=== PATIENT | male | born 2000 | race Caucasian/White ===

== ENCOUNTER 2019-05-13 11:12 | Day surgery (SDC) | payer OTHER ==
[2019-05-13] MEDS ORDERED: Diphtheria,Pertussis(Acell),Tetanus Vaccine 0.5 ML Syringe IM ONE (11:31)
[2019-05-13] MEDS ORDERED: Sodium Chloride 0.9% 2.5 ML Syringe FLUSH PRN (12:12)
[2019-05-13] MEDS ORDERED: Sodium Chloride 0.9% 10 ML Syringe FLUSH PRN (12:12)
[2019-05-13 12:27] LABS: BLOOD UREA NITROGEN,BUN 10 mg/dL (7.0-18.0); CARBON DIOXIDE,CO2 28.9 mmol/L (21.0-32.0); CHLORIDE,CL 101 mmol/L (98-107); GLUCOSE RANDOM 112 mg/dL (74-106); LIPASE 61 U/L (73-393); POTASSIUM,K 3.9 mmol/L (3.5-5.1); SODIUM,NA 139 mmol/L (136-148)
--- NOTE | 2019-05-13 12:32 | EDM.PDOC ---
ED [facility] GENERAL MEDICAL PROBLEM - General Chief Complaint: Abdominal Pain Stated Complaint: ABDOMINAL PAIN Time Seen by Provider: 05/13/19 12:30 Source of Information: Reports: Patient History Limitations: Reports: No Limitations - History of Present Illness INITIAL COMMENTS - FREE TEXT/NARRATIVE: Patient is 18-year-old male with no past medical history presenting with chief complaint of abdominal pain. Patient states for the past 2 days he has been feeling generally unwell experiencing URI symptoms along with nausea and loss of appetite. Today he developed pain in his abdomen. The pain is located in the right lower quadrant and does not radiate. Patient fluctuates in intensity. Patient states that nothing seems to make the pain better or worse. However as the day has gone on the pain is progressed and become more intense. Patient reports nausea without vomiting. Patient denies fevers, chills, diarrhea, constipation. In addition to that documented in the HPI above, the additional ROS was obtained : Constitutional: Denies fevers or chills Eyes: Denies vision changes ENMT: Denies sore throat CV: Denies chest pain Resp: Denies SOB GI: Denies vomiting or diarrhea : Denies painful urination MSK: Denies recent trauma Skin: Denies new rashes Neuro: Denies new numbness or tingling or weakness Endocrine: Denies unexpected weight loss Heme: Denies bleeding disorders I have reviewed the triage vital signs Const: Well nourished, well developed, appears stated age Eyes: PERRL, no conjunctival injection HENT: NCAT, Neck supple without meningismus CV: RRR, Warm, well-perfused extremities RESP: CTAB, Unlabored respiratory effort GI: Right lower quadrant abdominal tenderness. McBurney point tenderness. Positive Rovsing sign. No distention. No peritonitis MSK: No gross deformities appreciated Skin: Warm, dry. 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 Sensation and motor function of extremities grossly intact. Psych: Appropriate mood and affect Right Lower Abdominal Pain Score (Numeric/FACES): 8 - Related Data Allergies Allergy/AdvReac Type Severity Reaction Status Date / Time No Known Allergies Allergy Verified 05/13/19 20:40 Home Meds: Home Meds Acetaminophen/HYDROcodone [Morris 325-5 MG] 1 tab PO Q6H PRN 3 Days #10 tablet [Rx] Past Medical History - Past Health History Medical/Surgical History: Denies Medical/Surgical History - Infectious Disease History Infectious Disease History: Reports: None Social & Family History - Family History Family Medical History: Noncontributory - Tobacco Use Years of Tobacco use: 3 Packs/Tins Daily: 0.5 - Caffeine Use Caffeine Use: Reports: Coffee - Recreational Drug Use Recreational Drug Use: No ED ROS GENERAL - Review of Systems Review Of Systems: See Below Free Text/Narrative/Comment: In addition to that documented in the HPI above, the additional ROS was obtained : Constitutional: Denies fevers or chills Eyes: Denies vision changes ENMT: Denies sore throat CV: Denies chest pain Resp: Denies SOB GI: Denies vomiting or diarrhea : Denies painful urination MSK: Denies recent trauma Skin: Denies new rashes Neuro: Denies new numbness or tingling or weakness Endocrine: Denies unexpected weight loss Heme: Denies bleeding disorders ED EXAM, GI/ABD - Physical Exam Exam: See Below Text/Narrative:: I have reviewed the triage vital signs Const: Well nourished, well developed, appears stated age Eyes: PERRL, no conjunctival injection HENT: NCAT, Neck supple without meningismus CV: RRR, Warm, well-perfused extremities RESP: CTAB, Unlabored respiratory effort GI: Tender palpation of the right lower quadrant. McBurney point tenderness. Positive Rovsing sign. No guarding MSK: No gross deformities appreciated Skin: Warm, dry. 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 Sensation and motor function of extremities grossly intact. Psych: Appropriate mood and affect Course - Vital Signs Last Recorded V/S: Last Vital Signs Temp 36.6 C 05/14/19 07:46 Pulse 60 05/14/19 07:46 Resp 17 05/14/19 07:46 BP 109/67 05/14/19 07:46 Pulse Ox 97 05/14/19 07:46 - Orders/Labs/Meds Orders: Active Orders 24 hr Category Date Time Status Oxygen Therapy [RC] PRN Care 05/13/19 19:50 Active Pulse Oximetry [RC] ASDIRECTED Care 05/13/19 19:50 Active RT Incentive Spirometry [RC] Q1HWA Care 05/13/19 19:50 Active Ready for Discharge [RC] PER UNIT ROUTINE Care 05/14/19 10:11 Active Up ad Alisa [RC] PER UNIT ROUTINE Care 05/13/19 19:50 Active Vital Signs [RC] PER UNIT ROUTINE Care 05/13/19 19:50 Active Labs: Laboratory Tests 05/13/19 05/13/19 05/13/19 Range/Units 11:25 11:30 11:30 WBC 9.64 (4.0-11.0) K/uL RBC 5.08 (4.50-5.90) M/uL Hgb 14.5 (13.0-17.0) g/dL Hct 43.4 (38.0-50.0) % MCV 85.4 (80.0-98.0) fL MCH 28.5 (27.0-32.0) pg MCHC 33.4 (31.0-37.0) g/dL RDW Std Deviation 38.3 (28.0-62.0) fl RDW Coeff of Renee 12 (11.0-15.0) % Plt Count 187 (150-400) K/uL MPV 10.90 (7.40-12.00) fL Neut % (Auto) 73.8 (48.0-80.0) % Lymph % (Auto) 17.8 (16.0-40.0) % [place] % (Auto) 7.6 (0.0-15.0) % Eos % (Auto) 0.5 (0.0-7.0) % Baso % (Auto) 0.3 (0.0-1.5) % Neut # (Auto) 7.1 H (1.4-5.7) K/uL Lymph # (Auto) 1.7 (0.6-2.4) K/uL [place] # (Auto) 0.7 (0.0-0.8) K/uL Eos # (Auto) 0.1 (0.0-0.7) K/uL Baso # (Auto) 0.0 (0.0-0.1) K/uL Nucleated RBC % 0.0 /100WBC Nucleated RBCs # 0 K/uL Sodium 139 (136-148) mmol/L Potassium 3.9 (3.5-5.1) mmol/L Chloride 101 (98-107) mmol/L Carbon Dioxide 28.9 (21.0-32.0) mmol/L BUN 10 (7.0-18.0) mg/dL Creatinine 0.9 (0.8-1.3) mg/dL Est Cr Clr Drug Dosing 134.40 mL/min Estimated GFR (MDRD) > 60.0 ml/min Glucose 112 H (74-106) mg/dL Calcium 9.1 (8.5-10.1) mg/dL Total Bilirubin 0.6 (0.2-1.0) mg/dL AST 18 (15-37) IU/L ALT 19 (14-63) IU/L Alkaline Phosphatase 68 (46-116) U/L Total Protein 8.3 H (6.4-8.2) g/dL Albumin 4.2 (3.4-5.0) g/dL Globulin 4.1 H (2.6-4.0) g/dL Albumin/Globulin Ratio 1.0 (0.9-1.6) Amylase 44 (25-115) U/L Lipase 61 L (73-393) U/L Urine Color YELLOW Urine Appearance CLEAR Urine pH 6.0 (5.0-8.0) Ur Specific [place] 1.025 (1.001-1.035) Urine Protein NEGATIVE (NEGATIVE) mg/dL Urine Glucose (UA) NEGATIVE (NEGATIVE) mg/dL Urine Ketones TRACE H (NEGATIVE) mg/dL Urine Occult Blood NEGATIVE (NEGATIVE) Urine Nitrite NEGATIVE (NEGATIVE) Urine Bilirubin NEGATIVE (NEGATIVE) Urine Urobilinogen 0.2 (<2.0) EU/dL Ur Leukocyte Esterase NEGATIVE (NEGATIVE) Urine RBC 0-1 (0-2/HPF) Urine WBC 0-1 (0-5/HPF) Ur Epithelial Cells RARE (NONE-FEW) Urine Bacteria RARE (NEGATIVE) Urine Mucus LIGHT (NONE-MOD) Blood Type Antibody Screen 05/13/19 Range/Units 14:18 WBC (4.0-11.0) K/uL RBC (4.50-5.90) M/uL Hgb (13.0-17.0) g/dL Hct (38.0-50.0) % MCV (80.0-98.0) fL MCH (27.0-32.0) pg MCHC (31.0-37.0) g/dL RDW Std Deviation (28.0-62.0) fl RDW Coeff of Renee (11.0-15.0) % Plt Count (150-400) K/uL MPV (7.40-12.00) fL Neut % (Auto) (48.0-80.0) % Lymph % (Auto) (16.0-40.0) % [place] % (Auto) (0.0-15.0) % Eos % (Auto) (0.0-7.0) % Baso % (Auto) (0.0-1.5) % Neut # (Auto) (1.4-5.7) K/uL Lymph # (Auto) (0.6-2.4) K/uL [place] # (Auto) (0.0-0.8) K/uL Eos # (Auto) (0.0-0.7) K/uL Baso # (Auto) (0.0-0.1) K/uL Nucleated RBC % /100WBC Nucleated RBCs # K/uL Sodium (136-148) mmol/L Potassium (3.5-5.1) mmol/L Chloride (98-107) mmol/L Carbon Dioxide (21.0-32.0) mmol/L BUN (7.0-18.0) mg/dL Creatinine (0.8-1.3) mg/dL Est Cr Clr Drug Dosing mL/min Estimated GFR (MDRD) ml/min Glucose (74-106) mg/dL Calcium (8.5-10.1) mg/dL Total Bilirubin (0.2-1.0) mg/dL AST (15-37) IU/L ALT (14-63) IU/L Alkaline Phosphatase (46-116) U/L Total Protein (6.4-8.2) g/dL Albumin (3.4-5.0) g/dL Globulin (2.6-4.0) g/dL Albumin/Globulin Ratio (0.9-1.6) Amylase (25-115) U/L Lipase (73-393) U/L Urine Color Urine Appearance Urine pH (5.0-8.0) Ur Specific [place] (1.001-1.035) Urine Protein (NEGATIVE) mg/dL Urine Glucose (UA) (NEGATIVE) mg/dL Urine Ketones (NEGATIVE) mg/dL Urine Occult Blood (NEGATIVE) Urine Nitrite (NEGATIVE) Urine Bilirubin (NEGATIVE) Urine Urobilinogen (<2.0) EU/dL Ur Leukocyte Esterase (NEGATIVE) Urine RBC (0-2/HPF) Urine WBC (0-5/HPF) Ur Epithelial Cells (NONE-FEW) Urine Bacteria (NEGATIVE) Urine Mucus (NONE-MOD) Blood Type O POSITIVE Antibody Screen NEGATIVE Meds: Medications Discontinued Medications Generic Name Dose Route Start Last Admin Trade Name Freq PRN Reason Stop Dose Admin Acetaminophen 1,000 mg 05/13/19 14:30 05/13/19 14:36 Tylenol Extra Strength PO 05/13/19 14:31 1,000 mg ONETIME ONE Administration Acetaminophen 325 mg 05/13/19 19:50 Tylenol PO Q4H PRN Fever Greater Than 101 Hydrocodone Bitart/Acetaminophen 1 tab 05/13/19 19:50 05/14/19 07:43 Morris 325-5 Mg PO 1 tab Q6H PRN Administration Pain (moderate 4-6) Albuterol 2.5 mg 05/13/19 17:34 Proventil Neb Soln NEB ONETIME PRN Wheezing Atropine Sulfate 0.5 mg 05/13/19 17:34 Atropine 0.1 Mg/Ml IVPUSH ASDIRECTED PRN Hypo-perfusion Atropine Sulfate 1 mg 05/13/19 17:34 Atropine 0.1 Mg/Ml IVPUSH ASDIRECTED PRN Hypo-Perfusion Bupivacaine HCl Confirm 05/13/19 18:07 Marcaine 0.5% Administered 05/13/19 18:08 Dose 30 ml .ROUTE .STK-MED ONE Cefazolin Sodium Confirm 05/13/19 18:07 Ancef Administered 05/13/19 18:08 Dose 1 gm .ROUTE .STK-MED ONE Cefoxitin Sodium Confirm 05/13/19 18:40 Mefoxin Administered 05/13/19 18:41 Dose 1 gm .ROUTE .STK-MED ONE Dextrose/Water 50 ml 05/13/19 17:34 Dextrose 50% In Water IVPUSH ASDIRECTED PRN Hypoglycemia Epinephrine HCl 1 mg 05/13/19 17:34 Epinephrine 1:10,000 IVPUSH ASDIRECTED PRN ACLS Guidelines Fentanyl 50 - 100 mcg 05/13/19 17:34 05/13/19 20:05 Sublimaze IVPUSH 50 mcg Q5M PRN Administration Pain Fentanyl Confirm 05/13/19 18:04 Sublimaze Administered 05/13/19 18:05 Dose 250 mcg .ROUTE .STK-MED ONE Cefoxitin Sodium 2 gm/ Premix 50 mls @ 100 mls/hr 05/13/19 13:27 05/13/19 14: 17 IV 05/13/19 13:56 100 mls/hr ONETIME ONE Administration Lactated Ringer's 1,000 mls @ 150 mls/hr 05/13/19 14:30 05/13/19 14:36 Ringers, Lactated IV 150 mls/hr ASDIRECTED BEE Administration Lactated Ringer's 1,000 mls @ 125 mls/hr 05/13/19 16:30 05/14/19 08:36 Ringers, Lactated IV 125 mls/hr ASDIRECTED BEE Administration Sodium Chloride Confirm 05/13/19 18:40 Normal Saline Administered 05/13/19 18:41 Dose 20 mls @ as directed .ROUTE .STK-MED ONE Lactated Ringer's 1,000 mls @ 125 mls/hr 05/13/19 20:00 Ringers, Lactated IV ASDIRECTED BEE Cefoxitin Sodium 1 gm/ Premix 50 mls @ 100 mls/hr 05/13/19 21:00 05/14/19 05: 10 IV 05/14/19 13:29 Not Given Q8H BEE Cefoxitin Sodium 1 gm/ Premix 50 mls @ 100 mls/hr 05/14/19 02:00 05/14/19 09: 11 IV 05/14/19 18:29 100 mls/hr Q8H BEE Administration Iopamidol 100 ml 05/13/19 12:58 05/13/19 13:00 Isovue Multipack-370 (76%) IVPUSH 05/13/19 12:59 100 ml ONETIME STA Administration Ketorolac Tromethamine Confirm 05/13/19 19:25 Toradol Administered 05/13/19 19:26 Dose 30 mg .ROUTE .STK-MED ONE Lidocaine Confirm 05/13/19 18:03 Xylocaine-Mpf 2% Administered 05/13/19 18:04 Dose 5 ml .ROUTE .STK-MED ONE Midazolam HCl Confirm 05/13/19 18:04 Versed 1 Mg/Ml Administered 05/13/19 18:05 Dose 2 mg .ROUTE .STK-MED ONE Morphine Sulfate 6 mg 05/13/19 13:27 05/13/19 14:17 Morphine IVPUSH 05/13/19 13:28 6 mg ONETIME ONE Administration Morphine Sulfate 0 mg 05/13/19 19:50 Morphine IVPUSH Q1H PRN Pain (severe 7-10) Morphine Sulfate 0 mg 05/13/19 20:03 05/14/19 09:05 Morphine IVPUSH 2 mg Q1H PRN Administration Pain (severe 7-10) Naloxone HCl 0.1 mg 05/13/19 17:34 Narcan IVPUSH ASDIRECTED PRN Respiratory Depression Ondansetron HCl 4 mg 05/13/19 13:27 05/13/19 14:18 Zofran IVPUSH 05/13/19 13:28 4 mg ONETIME ONE Administration Ondansetron HCl Confirm 05/13/19 18:03 Zofran Administered 05/13/19 18:04 Dose 4 mg .ROUTE .STK-MED ONE Ondansetron HCl 4 mg 05/13/19 19:50 Zofran IVPUSH Q6H PRN Nausea/Vomiting Propofol Confirm 05/13/19 18:03 Diprivan 20 Ml Administered 05/13/19 18:04 Dose 200 mg .ROUTE .STK-MED ONE Sodium Chloride 10 ml 05/13/19 12:12 Saline Flush FLUSH ASDIRECTED PRN Keep Vein Open Sodium Chloride 2.5 ml 05/13/19 12:12 Saline Flush FLUSH ASDIRECTED PRN Keep Vein Open Departure - Departure Time of Disposition: 07:50 Disposition: Admitted As Inpatient 64 Clinical Impression: Acute appendicitis Qualifiers: Acute appendicitis type: with localized peritonitis Appendicitis perforation presence: without perforation Appendicitis abscess presence: without abscess - Discharge Information Sepsis Event Note - Evaluation Sepsis Screening Result: No Definite Risk - Focused Exam Date Exam was Performed: 05/14/19 Time Exam was Performed: 20:49 - Assessment/Plan Assessment:: Patient 18 year-old male presenting with right lower quadrant pain. Labs noted unremarkable. Patient had a CT scan which is consistent with concerns for appendicitis. Patient given antibiotics and pain medication in the emergency department. Case discussed with Dr. Stephens who will evaluate the patient for appendectomy. Patient will likely require admission for appendectomy as well as postsurgical observation and antibiotics.
[2019-05-13] MEDS ORDERED: Iopamidol 755 MG/ML 500 ML Multipack Bottle IVPUSH STA (12:58)
--- NOTE | 2019-05-13 13:24 | CT ---
CT abdomen and pelvis Technique: Multiple axial sections were obtained from above the dome of the diaphragm inferiorly through the pubic symphysis. Intravenous contrast was utilized. No oral contrast has been given. Findings: Fluid-filled tubular structure is seen within the right lower abdomen believed to represent dilated appendix. There is an appendicolith also present within this appendix. Minimal surrounding inflammatory change is seen. Findings are felt compatible with appendicitis. Visualized lung bases show nothing acute. Liver contains no focal abnormality. Spleen also appears within normal limits. Adrenal glands show no nodule. Pancreas is within normal limits. Gallbladder contains no calcified gallstones. Kidneys show symmetric contrast enhancement. No hydronephrosis or discrete cortical mass is seen. Aorta shows no aneurysm. No retroperitoneal adenopathy or mesenteric abnormalities are seen. Small amount of free fluid is seen within the pelvis most likely reactive from the appendicitis. Bone window settings were reviewed which shows nothing acute. Impression: 1. Findings which are felt compatible with appendicitis as described above. Diagnostic code #5 This report was dictated in [place] Standard Time
[2019-05-13] MEDS ORDERED: cefOXitin 2 GM in Premix Bag 1 BAG IV ONE (13:27)
[2019-05-13] MEDS ORDERED: Morphine 10 MG/ML Syringe IVPUSH ONE (13:27)
[2019-05-13] MEDS ORDERED: Ondansetron 4 MG/2 ML SDV IVPUSH ONE (13:27)
[2019-05-13] MEDS ORDERED: Lactated Ringers 1,000 ML IV SCH ×2 (14:30→20:00)
[2019-05-13] MEDS ORDERED: Acetaminophen 500 MG Tab PO ONE (14:30)
--- NOTE | 2019-05-13 16:33 | PCM.CONS ---
H&P History of Present Illness - General Date of Service: 05/13/19 Admit Problem/Dx: Admission Diagnosis/Problem Admission Diagnosis/Problem Acute appendicitis Source of Information: Patient, Family History Limitations: Reports: No Limitations - History of Present Illness Initial Comments - Free Text/Narative: Patient is a 18-year-old gentleman who presented the emergency room today complaining of right lower quadrant abdominal pain. He states the pain started about 3 AM and became progressively more intense. He denies any vomiting. Has had occasional nausea. Has not felt well for a couple of days and really hasn' t eaten very much. Denies any fever or chills. No change in bowel habits. Onset of Symptoms: Reports: Today Duration of Symptoms: Reports: Getting Worse Location: Reports: Abdomen Quality: Reports: Ache, Pressure Severity: Moderate Improves with: Reports: Rest Worsens with: Reports: Movement Associated Symptoms: Reports: No Other Symptoms Right Lower Abdominal Pain Score (Numeric/FACES): 8 - Related Data Allergies/Adverse Reactions: Allergies Allergy/AdvReac Type Severity Reaction Status Date / Time No Known Allergies Allergy Verified 05/13/19 11:25 Home Medications: Home Meds . [No Known Home Meds] 03/23/15 [History] Past Medical History - Past Health History Medical/Surgical History: Denies Medical/Surgical History - Infectious Disease History Infectious Disease History: Reports: None Social & Family History - Family History Family Medical History: Noncontributory - Tobacco Use Years of Tobacco use: 3 Packs/Tins Daily: 0.5 - Caffeine Use Caffeine Use: Reports: Coffee - Recreational Drug Use Recreational Drug Use: No H&P Review of Systems - Review of Systems: Review Of Systems: See Below General: Reports: Decreased Appetite. Denies: Fever, Chills, Malaise, Weakness HEENT: Reports: No Symptoms Pulmonary: Denies: Shortness of Breath, Wheezing Cardiovascular: Denies: Chest Pain, Palpitations Gastrointestinal: Reports: Abdominal Pain, Anorexia, Black Stool, Difficulty Swallowing, Flatus, Nausea. Denies: Constipation, Diarrhea, Decreased Appetite , Distension, Vomiting Genitourinary: Reports: No Symptoms Musculoskeletal: Reports: No Symptoms Skin: Reports: No Symptoms Psychiatric: Reports: No Symptoms Neurological: Reports: No Symptoms Hematologic/Lymphatic: Reports: No Symptoms Exam - Exam Exam: See Below - Vital Signs Vital Signs: Last Vital Signs Temp 99.4 F 05/13/19 16:24 Pulse 81 05/13/19 16:24 Resp 16 05/13/19 14:27 BP 122/68 05/13/19 16:24 Pulse Ox 95 05/13/19 16:24 Weight: 160 lb - Exam General: Alert, Oriented, Cooperative, Mild Distress HEENT: PERRLA, Hearing Intact, Mucosa Moist & Progress, Nares Patent, Normal Nasal Septum, Posterior Pharynx Clear, Conjunctiva Clear, EOMI, EACs Clear, TMs Clear Neck: Supple, Trachea Midline Lungs: Clear to Auscultation, Normal Respiratory Effort Cardiovascular: Regular Rate, Regular Rhythm, Normal S1, Normal S2 GI/Abdominal Exam: Normal Bowel Sounds, Soft, Tender, Other (+Rovsing's sign). No: Distended, Guarding, Rigid, Rebound (Male) Exam: No Hernia Rectal (Males) Exam: Deferred Extremities: Normal Inspection, Normal Range of Motion, Non-Tender, No Pedal Edema, Normal Capillary Refill Peripheral Pulses: 4+: Posterior Tibial (L), Posterior Tibial (R), Dorsalis Pedis (L), Dorsalis Pedis (R) Skin: Warm, Dry, Intact Neurological: Cranial Nerves Intact Neuro Extensive - Mental Status: Alert, Oriented x3, Normal Mood/Affect Psychiatric: Alert, Normal Affect, Normal Mood - Patient Data Lab Results Last 24 hrs: Laboratory Results - last 24 hr 05/13/19 05/13/19 05/13/19 Range/Units 11:25 11:30 11:30 WBC 9.64 (4.0-11.0) K/uL RBC 5.08 (4.50-5.90) M/uL Hgb 14.5 (13.0-17.0) g/dL Hct 43.4 (38.0-50.0) % MCV 85.4 (80.0-98.0) fL MCH 28.5 (27.0-32.0) pg MCHC 33.4 (31.0-37.0) g/dL RDW Std Deviation 38.3 (28.0-62.0) fl RDW Coeff of Renee 12 (11.0-15.0) % Plt Count 187 (150-400) K/uL MPV 10.90 (7.40-12.00) fL Neut % (Auto) 73.8 (48.0-80.0) % Lymph % (Auto) 17.8 (16.0-40.0) % [place] % (Auto) 7.6 (0.0-15.0) % Eos % (Auto) 0.5 (0.0-7.0) % Baso % (Auto) 0.3 (0.0-1.5) % Neut # (Auto) 7.1 H (1.4-5.7) K/uL Lymph # (Auto) 1.7 (0.6-2.4) K/uL [place] # (Auto) 0.7 (0.0-0.8) K/uL Eos # (Auto) 0.1 (0.0-0.7) K/uL Baso # (Auto) 0.0 (0.0-0.1) K/uL Nucleated RBC % 0.0 /100WBC Nucleated RBCs # 0 K/uL Sodium 139 (136-148) mmol/L Potassium 3.9 (3.5-5.1) mmol/L Chloride 101 (98-107) mmol/L Carbon Dioxide 28.9 (21.0-32.0) mmol/L BUN 10 (7.0-18.0) mg/dL Creatinine 0.9 (0.8-1.3) mg/dL Est Cr Clr Drug Dosing 134.40 mL/min Estimated GFR (MDRD) > 60.0 ml/min Glucose 112 H (74-106) mg/dL Calcium 9.1 (8.5-10.1) mg/dL Total Bilirubin 0.6 (0.2-1.0) mg/dL AST 18 (15-37) IU/L ALT 19 (14-63) IU/L Alkaline Phosphatase 68 (46-116) U/L Total Protein 8.3 H (6.4-8.2) g/dL Albumin 4.2 (3.4-5.0) g/dL Globulin 4.1 H (2.6-4.0) g/dL Albumin/Globulin Ratio 1.0 (0.9-1.6) Amylase 44 (25-115) U/L Lipase 61 L (73-393) U/L Urine Color YELLOW Urine Appearance CLEAR Urine pH 6.0 (5.0-8.0) Ur Specific [place] 1.025 (1.001-1.035) Urine Protein NEGATIVE (NEGATIVE) mg/dL Urine Glucose (UA) NEGATIVE (NEGATIVE) mg/dL Urine Ketones TRACE H (NEGATIVE) mg/dL Urine Occult Blood NEGATIVE (NEGATIVE) Urine Nitrite NEGATIVE (NEGATIVE) Urine Bilirubin NEGATIVE (NEGATIVE) Urine Urobilinogen 0.2 (<2.0) EU/dL Ur Leukocyte Esterase NEGATIVE (NEGATIVE) Urine RBC 0-1 (0-2/HPF) Urine WBC 0-1 (0-5/HPF) Ur Epithelial Cells RARE (NONE-FEW) Urine Bacteria RARE (NEGATIVE) Urine Mucus LIGHT (NONE-MOD) Blood Type Antibody Screen 05/13/19 Range/Units 14:18 WBC (4.0-11.0) K/uL RBC (4.50-5.90) M/uL Hgb (13.0-17.0) g/dL Hct (38.0-50.0) % MCV (80.0-98.0) fL MCH (27.0-32.0) pg MCHC (31.0-37.0) g/dL RDW Std Deviation (28.0-62.0) fl RDW Coeff of Renee (11.0-15.0) % Plt Count (150-400) K/uL MPV (7.40-12.00) fL Neut % (Auto) (48.0-80.0) % Lymph % (Auto) (16.0-40.0) % [place] % (Auto) (0.0-15.0) % Eos % (Auto) (0.0-7.0) % Baso % (Auto) (0.0-1.5) % Neut # (Auto) (1.4-5.7) K/uL Lymph # (Auto) (0.6-2.4) K/uL [place] # (Auto) (0.0-0.8) K/uL Eos # (Auto) (0.0-0.7) K/uL Baso # (Auto) (0.0-0.1) K/uL Nucleated RBC % /100WBC Nucleated RBCs # K/uL Sodium (136-148) mmol/L Potassium (3.5-5.1) mmol/L Chloride (98-107) mmol/L Carbon Dioxide (21.0-32.0) mmol/L BUN (7.0-18.0) mg/dL Creatinine (0.8-1.3) mg/dL Est Cr Clr Drug Dosing mL/min Estimated GFR (MDRD) ml/min Glucose (74-106) mg/dL Calcium (8.5-10.1) mg/dL Total Bilirubin (0.2-1.0) mg/dL AST (15-37) IU/L ALT (14-63) IU/L Alkaline Phosphatase (46-116) U/L Total Protein (6.4-8.2) g/dL Albumin (3.4-5.0) g/dL Globulin (2.6-4.0) g/dL Albumin/Globulin Ratio (0.9-1.6) Amylase (25-115) U/L Lipase (73-393) U/L Urine Color Urine Appearance Urine pH (5.0-8.0) Ur Specific [place] (1.001-1.035) Urine Protein (NEGATIVE) mg/dL Urine Glucose (UA) (NEGATIVE) mg/dL Urine Ketones (NEGATIVE) mg/dL Urine Occult Blood (NEGATIVE) Urine Nitrite (NEGATIVE) Urine Bilirubin (NEGATIVE) Urine Urobilinogen (<2.0) EU/dL Ur Leukocyte Esterase (NEGATIVE) Urine RBC (0-2/HPF) Urine WBC (0-5/HPF) Ur Epithelial Cells (NONE-FEW) Urine Bacteria (NEGATIVE) Urine Mucus (NONE-MOD) Blood Type O POSITIVE Antibody Screen NEGATIVE Result Diagrams: 05/13/19 11:30 05/13/19 11:30 Sepsis Event Note - Evaluation Sepsis Screening Result: No Definite Risk - Focused Exam Vital Signs: Vital Signs Temp Temp Pulse Resp BP Pulse Ox 05/13/19 16:24 99.4 F 81 122/68 95 05/13/19 14:36 102.2 F H 05/13/19 14:27 102.2 F H 92 16 131/76 100 05/13/19 14:02 101.2 F H 82 126/71 98 05/13/19 11:25 99.2 F 88 16 127/74 98 Date Exam was Performed: 05/13/19 Time Exam was Performed: 16:28 Consult PN Assessment/Plan Procedures: Procedures CULTURE SCREEN ONLY (06/10/14) EMERGENCY DEPT VISIT (03/23/15) STREP A AG IA (06/10/14) URINALYSIS AUTO W/SCOPE (03/23/15) X-RAY EXAM L-S SPINE 2/3 VWS (03/23/15) (1) Acute abdomen SNOMED Code(s): 0252796 Code(s): R10.0 - ACUTE ABDOMEN Current Visit: Yes Problem List Initiated/Reviewed/Updated: Yes My Orders Last 24 Hours: My Active Orders 05/13/19 16:23 Resuscitation Status Routine 05/13/19 16:24 Antiembolic Devices [RC] PER UNIT ROUTINE Insert Urinary Catheter [OM.PC] Timed Oxygen Therapy [RC] ASDIRECTED RT Incentive Spirometry [RC] Q1HWA Skin Preparation [RC] .PREOP Urinary Catheter Assessment [RC] ASDIRECTED Urinary Catheter Assessment [RC] ASDIRECTED Urinary Catheter Assessment [RC] ASDIRECTED Vital Signs [RC] PER UNIT ROUTINE Antiembolic Hose [OM.PC] Routine 05/13/19 16:25 Admission Status [Patient Status] [ADT] Routine 05/13/19 16:30 Lactated Ringers @ 125 MLS/HR(1000ml) Lactated Ringers [Ringers, Lactated] 1, 000 ml IV ASDIRECTED 05/13/19 Dinner Nothing Per Oral Diet [DIET] Plan: Laparoscopic appendectomy, possible open appendectomy. Both operative procedures, along with the risks, including, but not limited to, bleeding, infection, pneumonia, deep venous thrombosis, pulmonary emboli, myocardial infarction, and adjacent organ injury have been reviewed with the patient who voices understanding, offers no questions and agrees to proceed.Laparoscopic appendectomy, possible open appendectomy. Both operative procedures, along with the risks, including, but not limited to, bleeding, infection, pneumonia, deep venous thrombosis, pulmonary emboli, myocardial infarction, and adjacent organ injury have been reviewed with the patient who voices understanding, offers no questions and agrees to proceed.
--- NOTE | 2019-05-13 16:45 | PCM.PREANE ---
Preanesthetic Assessment - Anesthesia/Transfusion/Family Hx Anesthesia History: No Prior Anesthesia Family History of Anesthesia Reaction: No Intubation History: Unknown - Review of Systems General: No Symptoms Pulmonary: No Symptoms Cardiovascular: No Symptoms Gastrointestinal: Abdominal Pain Neurological: No Symptoms Other: Reports: None - Physical Assessment Vital Signs: Last Vital Signs Temp 37.4 C 05/13/19 16:24 Pulse 81 05/13/19 16:24 Resp 16 05/13/19 14:27 BP 122/68 05/13/19 16:24 Pulse Ox 95 05/13/19 16:24 Height: 6 ft 2 in Weight: 72.575 kg ASA Class: 2E Mental Status: Alert & Oriented x3 Airway Class: Mallampati = 1 Dentition: Reports: Normal Dentition Thyro-Mental Finger Breadths: 3 Mouth Opening Finger Breadths: 3 ROM/Head Extension: Full Lungs: Clear to Auscultation, Normal Respiratory Effort Cardiovascular: Regular Rate, Regular Rhythm - Lab Values: Laboratory Last Values WBC 9.64 K/uL (4.0-11.0) 05/13/19 11:30 RBC 5.08 M/uL (4.50-5.90) 05/13/19 11:30 Hgb 14.5 g/dL (13.0-17.0) 05/13/19 11:30 Hct 43.4 % (38.0-50.0) 05/13/19 11:30 MCV 85.4 fL (80.0-98.0) 05/13/19 11:30 MCH 28.5 pg (27.0-32.0) 05/13/19 11:30 MCHC 33.4 g/dL (31.0-37.0) 05/13/19 11:30 RDW Std Deviation 38.3 fl (28.0-62.0) 05/13/19 11:30 RDW Coeff of Renee 12 % (11.0-15.0) 05/13/19 11:30 Plt Count 187 K/uL (150-400) 05/13/19 11:30 MPV 10.90 fL (7.40-12.00) 05/13/19 11:30 Neut % (Auto) 73.8 % (48.0-80.0) 05/13/19 11:30 Lymph % (Auto) 17.8 % (16.0-40.0) 05/13/19 11:30 [place] % (Auto) 7.6 % (0.0-15.0) 05/13/19 11:30 Eos % (Auto) 0.5 % (0.0-7.0) 05/13/19 11:30 Baso % (Auto) 0.3 % (0.0-1.5) 05/13/19 11:30 Neut # (Auto) 7.1 K/uL (1.4-5.7) H 05/13/19 11:30 Lymph # (Auto) 1.7 K/uL (0.6-2.4) 05/13/19 11:30 [place] # (Auto) 0.7 K/uL (0.0-0.8) 05/13/19 11:30 Eos # (Auto) 0.1 K/uL (0.0-0.7) 05/13/19 11:30 Baso # (Auto) 0.0 K/uL (0.0-0.1) 05/13/19 11:30 Nucleated RBC % 0.0 /100WBC 05/13/19 11:30 Nucleated RBCs # 0 K/uL 05/13/19 11:30 Sodium 139 mmol/L (136-148) 05/13/19 11:30 Potassium 3.9 mmol/L (3.5-5.1) 05/13/19 11:30 Chloride 101 mmol/L (98-107) 05/13/19 11:30 Carbon Dioxide 28.9 mmol/L (21.0-32.0) 05/13/19 11:30 BUN 10 mg/dL (7.0-18.0) 05/13/19 11:30 Creatinine 0.9 mg/dL (0.8-1.3) 05/13/19 11:30 Est Cr Clr Drug Dosing 134.40 mL/min 05/13/19 11:30 Estimated GFR (MDRD) > 60.0 ml/min 05/13/19 11:30 Glucose 112 mg/dL (74-106) H 05/13/19 11:30 Calcium 9.1 mg/dL (8.5-10.1) 05/13/19 11:30 Total Bilirubin 0.6 mg/dL (0.2-1.0) 05/13/19 11:30 AST 18 IU/L (15-37) 05/13/19 11:30 ALT 19 IU/L (14-63) 05/13/19 11:30 Alkaline Phosphatase 68 U/L (46-116) 05/13/19 11:30 Total Protein 8.3 g/dL (6.4-8.2) H 05/13/19 11:30 Albumin 4.2 g/dL (3.4-5.0) 05/13/19 11:30 Globulin 4.1 g/dL (2.6-4.0) H 05/13/19 11:30 Albumin/Globulin Ratio 1.0 (0.9-1.6) 05/13/19 11:30 Amylase 44 U/L (25-115) 05/13/19 11:30 Lipase 61 U/L (73-393) L 05/13/19 11:30 Urine Color YELLOW 05/13/19 11:25 Urine Appearance CLEAR 05/13/19 11:25 Urine pH 6.0 (5.0-8.0) 05/13/19 11:25 Ur Specific [place] 1.025 (1.001-1.035) 05/13/19 11:25 Urine Protein NEGATIVE mg/dL (NEGATIVE) 05/13/19 11:25 Urine Glucose (UA) NEGATIVE mg/dL (NEGATIVE) 05/13/19 11:25 Urine Ketones TRACE mg/dL (NEGATIVE) H 05/13/19 11:25 Urine Occult Blood NEGATIVE (NEGATIVE) 05/13/19 11:25 Urine Nitrite NEGATIVE (NEGATIVE) 05/13/19 11:25 Urine Bilirubin NEGATIVE (NEGATIVE) 05/13/19 11:25 Urine Urobilinogen 0.2 EU/dL (<2.0) 05/13/19 11:25 Ur Leukocyte Esterase NEGATIVE (NEGATIVE) 05/13/19 11:25 Urine RBC 0-1 (0-2/HPF) 05/13/19 11:25 Urine WBC 0-1 (0-5/HPF) 05/13/19 11:25 Ur Epithelial Cells RARE (NONE-FEW) 05/13/19 11:25 Urine Bacteria RARE (NEGATIVE) 05/13/19 11:25 Urine Mucus LIGHT (NONE-MOD) 05/13/19 11:25 Blood Type O POSITIVE 05/13/19 14:18 Antibody Screen NEGATIVE 05/13/19 14:18 - Allergies Allergies/Adverse Reactions: Allergies Allergy/AdvReac Type Severity Reaction Status Date / Time No Known Allergies Allergy Verified 05/13/19 11:25 - Blood Blood Available: No - Anesthesia Plan Pre-Op Medication Ordered: None - Acknowledgements Anesthesia Type Planned: General Anesthesia Pt an Appropriate Candidate for the Planned Anesthesia: Yes Alternatives and Risks of Anesthesia Discussed w Pt/Guardian: Yes Pt/Guardian Understands and Agrees with Anesthesia Plan: Yes PreAnesthesia Questionnaire - Past Health History Medical/Surgical History: Denies Medical/Surgical History Gastrointestinal History: Reports: Other (See Below) (Acute appendicitis) - Infectious Disease History Infectious Disease History: Reports: None - Past Surgical History Head Surgeries/Procedures: Reports: None HEENT Surgical History: Reports: None Cardiovascular Surgical History: Reports: None Respiratory Surgical History: Reports: None GI Surgical History: Reports: None Female Surgical History: Reports: None Male Surgical History: Reports: None Endocrine Surgical History: Reports: None Neurological Surgical History: Reports: None Musculoskeletal Surgical History: Reports: None Oncologic Surgical History: Reports: None Dermatological Surgical History: Reports: None - SUBSTANCE USE Tobacco Use Within Last Twelve Months: Snuff/Dip Recreational Drug Use History: No - HOME MEDS Home Medications: Home Meds . [No Known Home Meds] 03/23/15 [History] - CURRENT (IN HOUSE) MEDS Current Meds: Current Medications Lactated Ringer's (Ringers, Lactated) 1,000 mls @ 150 mls/hr IV ASDIRECTED BEE Last Admin: 05/13/19 14:36 Dose: 150 mls/hr Lactated Ringer's (Ringers, Lactated) 1,000 mls @ 125 mls/hr IV ASDIRECTED BEE Sodium Chloride (Saline Flush) 10 ml FLUSH ASDIRECTED PRN PRN Reason: Keep Vein Open Sodium Chloride (Saline Flush) 2.5 ml FLUSH ASDIRECTED PRN PRN Reason: Keep Vein Open Discontinued Medications Acetaminophen (Tylenol Extra Strength) 1,000 mg PO ONETIME ONE Stop: 05/13/19 14:31 Last Admin: 05/13/19 14:36 Dose: 1,000 mg Cefoxitin Sodium 2 gm/ Premix 50 mls @ 100 mls/hr IV ONETIME ONE Stop: 05/13/19 13:56 Last Admin: 05/13/19 14:17 Dose: 100 mls/hr Iopamidol (Isovue Multipack-370 (76%)) 100 ml IVPUSH ONETIME STA Stop: 05/13/19 12:59 Last Admin: 05/13/19 13:00 Dose: 100 ml Morphine Sulfate (Morphine) 6 mg IVPUSH ONETIME ONE Stop: 05/13/19 13:28 Last Admin: 05/13/19 14:17 Dose: 6 mg Ondansetron HCl (Zofran) 4 mg IVPUSH ONETIME ONE Stop: 05/13/19 13:28 Last Admin: 05/13/19 14:18 Dose: 4 mg
[2019-05-13] MEDS ORDERED: Atropine 0.1 MG/ML 10 ML Syringe IVPUSH PRN ×2 (17:34)
[2019-05-13] MEDS ORDERED: Albuterol 0.083% 2.5 MG/3 ML Neb Soln NEB PRN (17:34)
[2019-05-13] MEDS ORDERED: Naloxone 0.4 MG/ML Syringe IVPUSH PRN (17:34)
[2019-05-13] MEDS ORDERED: 50% Dextrose in Water 50 ML Syringe IVPUSH PRN (17:34)
[2019-05-13] MEDS ORDERED: EPINEPHrine 1:10,000 1 MG/10 ML Syringe IVPUSH PRN (17:34)
[2019-05-13] MEDS ORDERED: Propofol 200 MG/20 ML SDV ONE (18:03)
[2019-05-13] MEDS ORDERED: Lidocaine 2% 5 ML SDV ONE (18:03)
[2019-05-13] MEDS ORDERED: Ondansetron 4 MG/2 ML SDV ONE (18:03)
[2019-05-13] MEDS ORDERED: Midazolam 1 MG/ML 2 ML SDV ONE (18:04)
[2019-05-13] MEDS ORDERED: fentaNYL 250 MCG/5 ML SDV ONE (18:04)
[2019-05-13] MEDS ORDERED: Bupivacaine 0.5% 30 ML SDV ONE (18:07)
[2019-05-13] MEDS ORDERED: ceFAZolin 1 GM Vial ONE (18:07)
[2019-05-13] MEDS ORDERED: Sodium Chloride 0.9% 20 ML ONE (18:40)
[2019-05-13] MEDS ORDERED: cefOXitin 1 GM Vial ONE (18:40)
[2019-05-13] MEDS ORDERED: Ketorolac 30 MG/ML SDV ONE (19:25)
[2019-05-13] MEDS ORDERED: Ondansetron 4 MG/2 ML SDV IVPUSH PRN (19:50)
[2019-05-13] MEDS ORDERED: Morphine 10 MG/ML Syringe IVPUSH PRN (19:50)
[2019-05-13] MEDS ORDERED: Acetaminophen 325 MG Tab PO PRN (19:50)
--- NOTE | 2019-05-13 19:56 | PCM.OPNOTE ---
- General Post-Op/Procedure Note Date of Surgery/Procedure: 05/13/19 Operative Procedure(s): Laparoscopic appendectomy Pre Op Diagnosis: Acute abdomen Post-Op Diagnosis: Acute appendicitis Anesthesia Technique: General ET Tube (ASA IE) Primary Surgeon: Fernando Chang Fluid Replacement, Intraop: 900 Output, Urine Amount: 100 EBL in mLs: 10 Condition: Stable Free Text/Narrative:: Intake & Output 05/13/19 05/13/19 05/13/19 03:59 11:59 19:59 Output Total 100 Balance -100 DICTATION 659118 CPT CODE 60694
[2019-05-13] MEDS: fentaNYL 100 MCG/2 ML SDV IVPUSH PRN ×2 (19:59→20:05)
--- NOTE | 2019-05-13 20:07 | PCM.POSTAN ---
POST ANESTHESIA ASSESSMENT - MENTAL STATUS Mental Status: Alert, Oriented - VITAL SIGNS Vital Signs: Last Vital Signs Temp 99.1 F 05/13/19 19:40 Pulse 76 05/13/19 20:00 Resp 12 05/13/19 20:00 BP 121/74 05/13/19 20:00 Pulse Ox 100 05/13/19 20:00 - RESPIRATORY Respiratory Status: Respiratory Rate WNL, Airway Patent, O2 Saturation Stable - CARDIOVASCULAR CV Status: Pulse Rate WNL, Blood Pressure Stable - GASTROINTESTINAL GI Status: No Symptoms - PAIN Pain Score: 1 - POST OP HYDRATION Hydration Status: Adequate & Stable - OBSERVATIONS Free Text/Narrative:: Pt very anxious in recovery. Denies pain at this time.
--- NOTE | 2019-05-13 20:42 | OR ---
SURGEON: Fernando Chang M.D. DATE OF PROCEDURE: 05/13/2019 PROCEDURE PERFORMED: Laparoscopic appendectomy. PRIMARY SURGEON: Fernando Chang M.D. ANESTHESIA: General endotracheal. ASA CLASSIFICATION: IIE. PREOPERATIVE DIAGNOSIS: Acute abdomen. POSTOPERATIVE DIAGNOSIS: Acute appendicitis without rupture. ESTIMATED BLOOD LOSS: 10 mL. INTRAOPERATIVE FLUID REPLACEMENT: 1000 mL of crystalloid. INTRAOPERATIVE URINE OUTPUT: 100 mL. DESCRIPTION OF PROCEDURE: The patient was taken to the operating room and placed on the operating table in the supine position. Time-out was called for appropriate identification of patient and procedure. Thigh-high TEDs and sequential compression boots were placed. Following satisfactory attainment of general endotracheal anesthesia, a Sánchez catheter was placed in the patient's bladder. The abdomen was prepped with DuraPrep solution. Sterile drapes were applied. The skin just above the umbilicus was infiltrated with 0.5% Marcaine solution. The skin incision was made and deepened through the subcutaneous tissue obtaining hemostasis with the use of electrocautery. The Veress needle was introduced into the peritoneal cavity. The saline drop test was positive. Carbon dioxide pneumoperitoneum was established with the relief set at 13 cm of water. Once satisfactory pneumoperitoneum was established, the Veress needle was removed and the 5 mm camera ports were placed in the supraumbilical position. The patient was now positioned with his head down and rolled to the left. Appropriate sites for placement of the suprapubic and left lower quadrant ports were identified. Each incision was preemptively infiltrated with 0.5% Marcaine solution. The suprapubic incision was approached first. Skin incision was made and deepened through the subcutaneous tissue obtaining hemostasis with the use of electrocautery. A 12-mm port was inserted under direct vision. Our attention was now turned to the left lower quadrant, where again the skin incision was made after preemptive infiltration with 0.5% Marcaine solution. Under camera vision, 5-mm port was placed. The appendix was then grasped. The mesoappendix was taken down with the Harmonic scalpel. The base did not appear involved. The base of the appendix was doubly ligated with 0 PDS Endoloop. The appendix was then transected and promptly placed in the Endo Catch bag. The right lower quadrant was irrigated with 1% Ancef solution. All fluid was aspirated. The appendix was inspected, and as it had been transected with the Harmonic Scalpel, was sealed. There was no fluid present and no purulent drainage in the right lower quadrant. No bleeding was noted. With that accomplished and irrigation completed, all fluid aspirated. The 12-mm suprapubic port and EndoCatch containing appendix were removed. Again, under camera vision, the 5-mm left lower quadrant port was removed and finally the supraumbilical camera and port were removed. Wounds were inspected for hemostasis and bleeding sites were electrocoagulated. The suprapubic and supraumbilical incisions were closed in 2 layers approximating the subcutaneous tissue with 3-0 Vicryl and the skin with subcuticular 4-0 Monocryl. The left lower quadrant port was closed with subcuticular 4-0 Monocryl. All incisions were Steri-Stripped and dressed with sterile Tegaderm pads. Sponge, needle, and instrument counts were all correct. Sánchez catheter was removed prior to emergence from anesthesia. Following emergence from anesthesia and extubation, the patient was taken to recovery room in stable condition. DANIELLE MAGANA /[id number]
[2019-05-13] MEDS ORDERED: cefOXitin 1 GM in Premix Bag 1 BAG IV SCH (21:00)
[2019-05-13] MEDS: Morphine 4 MG/ML Syringe IVPUSH PRN (21:32)
[2019-05-14] MEDS: Lactated Ringers 1,000 ML IV SCH ×2 (00:02→08:36)
[2019-05-14] MEDS: Acetaminophen/HYDROcodone 325-5 MG Tab PO PRN ×2 (00:07→07:43)
[2019-05-14] MEDS: cefOXitin 1 GM in Premix Bag 1 BAG IV SCH ×2 (01:17→09:11)
[2019-05-14 07:47] VITALS: BP 109/67; PULSE 60
[2019-05-14] MEDS: Morphine 4 MG/ML Syringe IVPUSH PRN (09:05)
--- NOTE | 2019-05-14 10:15 | PCM.SURGPN ---
- General Info Date of Service: 05/14/19 POD#: 1 Post-Op Diagnosis: Acute appendicitis Functional Status: Reports: Pain Controlled - Review of Systems General: Denies: Weakness, Fatigue HEENT: Reports: No Symptoms Pulmonary: Denies: Shortness of Breath, Cough Cardiovascular: Denies: Chest Pain Gastrointestinal: Reports: Abdominal Pain (Mild right lower quadrant pain). Denies: Decreased Appetite, Nausea, Vomiting Genitourinary: Reports: No Symptoms Musculoskeletal: Reports: No Symptoms Skin: Reports: No Symptoms Neurological: Reports: No Symptoms Psychiatric: Reports: No Symptoms - Patient Data Vitals - Most Recent: Last Vital Signs Temp 97.8 F 05/14/19 07:46 Pulse 60 05/14/19 07:46 Resp 17 05/14/19 07:46 BP 109/67 05/14/19 07:46 Pulse Ox 97 05/14/19 07:46 Weight - Most Recent: 162 lb I&O - Last 24 Hours: Intake & Output 05/13/19 05/14/19 05/14/19 19:59 03:59 11:59 Intake Total 1900 1700 Output Total 300 400 Balance 1600 1300 Lab Results Last 24 Hrs: Laboratory Results - last 24 hr 05/13/19 05/13/19 05/13/19 Range/Units 11:25 11:30 11:30 WBC 9.64 (4.0-11.0) K/uL RBC 5.08 (4.50-5.90) M/uL Hgb 14.5 (13.0-17.0) g/dL Hct 43.4 (38.0-50.0) % MCV 85.4 (80.0-98.0) fL MCH 28.5 (27.0-32.0) pg MCHC 33.4 (31.0-37.0) g/dL RDW Std Deviation 38.3 (28.0-62.0) fl RDW Coeff of Renee 12 (11.0-15.0) % Plt Count 187 (150-400) K/uL MPV 10.90 (7.40-12.00) fL Neut % (Auto) 73.8 (48.0-80.0) % Lymph % (Auto) 17.8 (16.0-40.0) % Grant % (Auto) 7.6 (0.0-15.0) % Eos % (Auto) 0.5 (0.0-7.0) % Baso % (Auto) 0.3 (0.0-1.5) % Neut # (Auto) 7.1 H (1.4-5.7) K/uL Lymph # (Auto) 1.7 (0.6-2.4) K/uL Grant # (Auto) 0.7 (0.0-0.8) K/uL Eos # (Auto) 0.1 (0.0-0.7) K/uL Baso # (Auto) 0.0 (0.0-0.1) K/uL Nucleated RBC % 0.0 /100WBC Nucleated RBCs # 0 K/uL Sodium 139 (136-148) mmol/L Potassium 3.9 (3.5-5.1) mmol/L Chloride 101 (98-107) mmol/L Carbon Dioxide 28.9 (21.0-32.0) mmol/L BUN 10 (7.0-18.0) mg/dL Creatinine 0.9 (0.8-1.3) mg/dL Est Cr Clr Drug Dosing 134.40 mL/min Estimated GFR (MDRD) > 60.0 ml/min Glucose 112 H (74-106) mg/dL Calcium 9.1 (8.5-10.1) mg/dL Total Bilirubin 0.6 (0.2-1.0) mg/dL AST 18 (15-37) IU/L ALT 19 (14-63) IU/L Alkaline Phosphatase 68 (46-116) U/L Total Protein 8.3 H (6.4-8.2) g/dL Albumin 4.2 (3.4-5.0) g/dL Globulin 4.1 H (2.6-4.0) g/dL Albumin/Globulin Ratio 1.0 (0.9-1.6) Amylase 44 (25-115) U/L Lipase 61 L (73-393) U/L Urine Color YELLOW Urine Appearance CLEAR Urine pH 6.0 (5.0-8.0) Ur Specific [place] 1.025 (1.001-1.035) Urine Protein NEGATIVE (NEGATIVE) mg/dL Urine Glucose (UA) NEGATIVE (NEGATIVE) mg/dL Urine Ketones TRACE H (NEGATIVE) mg/dL Urine Occult Blood NEGATIVE (NEGATIVE) Urine Nitrite NEGATIVE (NEGATIVE) Urine Bilirubin NEGATIVE (NEGATIVE) Urine Urobilinogen 0.2 (<2.0) EU/dL Ur Leukocyte Esterase NEGATIVE (NEGATIVE) Urine RBC 0-1 (0-2/HPF) Urine WBC 0-1 (0-5/HPF) Ur Epithelial Cells RARE (NONE-FEW) Urine Bacteria RARE (NEGATIVE) Urine Mucus LIGHT (NONE-MOD) Blood Type Antibody Screen 05/13/19 Range/Units 14:18 WBC (4.0-11.0) K/uL RBC (4.50-5.90) M/uL Hgb (13.0-17.0) g/dL Hct (38.0-50.0) % MCV (80.0-98.0) fL MCH (27.0-32.0) pg MCHC (31.0-37.0) g/dL RDW Std Deviation (28.0-62.0) fl RDW Coeff of Renee (11.0-15.0) % Plt Count (150-400) K/uL MPV (7.40-12.00) fL Neut % (Auto) (48.0-80.0) % Lymph % (Auto) (16.0-40.0) % Grant % (Auto) (0.0-15.0) % Eos % (Auto) (0.0-7.0) % Baso % (Auto) (0.0-1.5) % Neut # (Auto) (1.4-5.7) K/uL Lymph # (Auto) (0.6-2.4) K/uL Grant # (Auto) (0.0-0.8) K/uL Eos # (Auto) (0.0-0.7) K/uL Baso # (Auto) (0.0-0.1) K/uL Nucleated RBC % /100WBC Nucleated RBCs # K/uL Sodium (136-148) mmol/L Potassium (3.5-5.1) mmol/L Chloride (98-107) mmol/L Carbon Dioxide (21.0-32.0) mmol/L BUN (7.0-18.0) mg/dL Creatinine (0.8-1.3) mg/dL Est Cr Clr Drug Dosing mL/min Estimated GFR (MDRD) ml/min Glucose (74-106) mg/dL Calcium (8.5-10.1) mg/dL Total Bilirubin (0.2-1.0) mg/dL AST (15-37) IU/L ALT (14-63) IU/L Alkaline Phosphatase (46-116) U/L Total Protein (6.4-8.2) g/dL Albumin (3.4-5.0) g/dL Globulin (2.6-4.0) g/dL Albumin/Globulin Ratio (0.9-1.6) Amylase (25-115) U/L Lipase (73-393) U/L Urine Color Urine Appearance Urine pH (5.0-8.0) Ur Specific [place] (1.001-1.035) Urine Protein (NEGATIVE) mg/dL Urine Glucose (UA) (NEGATIVE) mg/dL Urine Ketones (NEGATIVE) mg/dL Urine Occult Blood (NEGATIVE) Urine Nitrite (NEGATIVE) Urine Bilirubin (NEGATIVE) Urine Urobilinogen (<2.0) EU/dL Ur Leukocyte Esterase (NEGATIVE) Urine RBC (0-2/HPF) Urine WBC (0-5/HPF) Ur Epithelial Cells (NONE-FEW) Urine Bacteria (NEGATIVE) Urine Mucus (NONE-MOD) Blood Type O POSITIVE Antibody Screen NEGATIVE Med Orders - Current: Current Medications Acetaminophen (Tylenol) 325 mg PO Q4H PRN PRN Reason: Fever Greater Than 101 Hydrocodone Bitart/Acetaminophen ([place] 325-5 Mg) 1 tab PO Q6H PRN PRN Reason: Pain (moderate 4-6) Last Admin: 05/14/19 07:43 Dose: 1 tab Albuterol (Proventil Neb Soln) 2.5 mg NEB ONETIME PRN PRN Reason: Wheezing Atropine Sulfate (Atropine 0.1 Mg/Ml) 0.5 mg IVPUSH ASDIRECTED PRN PRN Reason: Hypo-perfusion Atropine Sulfate (Atropine 0.1 Mg/Ml) 1 mg IVPUSH ASDIRECTED PRN PRN Reason: Hypo-Perfusion Dextrose/Water (Dextrose 50% In Water) 50 ml IVPUSH ASDIRECTED PRN PRN Reason: Hypoglycemia Epinephrine HCl (Epinephrine 1:10,000) 1 mg IVPUSH ASDIRECTED PRN PRN Reason: ACLS Guidelines Fentanyl (Sublimaze) 50 - 100 mcg IVPUSH Q5M PRN PRN Reason: Pain Last Admin: 05/13/19 20:05 Dose: 50 mcg Lactated Ringer's (Ringers, Lactated) 1,000 mls @ 150 mls/hr IV ASDIRECTED [facility] Last Admin: 05/13/19 14:36 Dose: 150 mls/hr Lactated Ringer's (Ringers, Lactated) 1,000 mls @ 125 mls/hr IV ASDIRECTED [facility] Last Admin: 05/14/19 08:36 Dose: 125 mls/hr Lactated Ringer's (Ringers, Lactated) 1,000 mls @ 125 mls/hr IV ASDIRECTED [facility] Cefoxitin Sodium 1 gm/ Premix 50 mls @ 100 mls/hr IV Q8H [facility] Stop: 05/14/19 18:29 Last Admin: 05/14/19 09:11 Dose: 100 mls/hr Morphine Sulfate (Morphine) 0 mg IVPUSH Q1H PRN PRN Reason: Pain (severe 7-10) Last Admin: 05/14/19 09:05 Dose: 2 mg Naloxone HCl (Narcan) 0.1 mg IVPUSH ASDIRECTED PRN PRN Reason: Respiratory Depression Ondansetron HCl (Zofran) 4 mg IVPUSH Q6H PRN PRN Reason: Nausea/Vomiting Sodium Chloride (Saline Flush) 10 ml FLUSH ASDIRECTED PRN PRN Reason: Keep Vein Open Sodium Chloride (Saline Flush) 2.5 ml FLUSH ASDIRECTED PRN PRN Reason: Keep Vein Open Discontinued Medications Acetaminophen (Tylenol Extra Strength) 1,000 mg PO ONETIME ONE Stop: 05/13/19 14:31 Last Admin: 05/13/19 14:36 Dose: 1,000 mg Bupivacaine HCl (Marcaine 0.5%) Confirm Administered Dose 30 ml .ROUTE .STK-MED ONE Stop: 05/13/19 18:08 Cefazolin Sodium (Ancef) Confirm Administered Dose 1 gm .ROUTE .STK-MED ONE Stop: 05/13/19 18:08 Cefoxitin Sodium (Mefoxin) Confirm Administered Dose 1 gm .ROUTE .STK-MED ONE Stop: 05/13/19 18:41 Fentanyl (Sublimaze) Confirm Administered Dose 250 mcg .ROUTE .STK-MED ONE Stop: 05/13/19 18:05 Cefoxitin Sodium 2 gm/ Premix 50 mls @ 100 mls/hr IV ONETIME ONE Stop: 05/13/19 13:56 Last Admin: 05/13/19 14:17 Dose: 100 mls/hr Sodium Chloride (Normal Saline) Confirm Administered Dose 20 mls @ as directed .ROUTE .STK-MED ONE Stop: 05/13/19 18:41 Cefoxitin Sodium 1 gm/ Premix 50 mls @ 100 mls/hr IV Q8H [facility] Stop: 05/14/19 13:29 Last Admin: 05/14/19 05:10 Dose: Not Given Iopamidol (Isovue Multipack-370 (76%)) 100 ml IVPUSH ONETIME STA Stop: 05/13/19 12:59 Last Admin: 05/13/19 13:00 Dose: 100 ml Ketorolac Tromethamine (Toradol) Confirm Administered Dose 30 mg .ROUTE .STK- MED ONE Stop: 05/13/19 19:26 Lidocaine (Xylocaine-Mpf 2%) Confirm Administered Dose 5 ml .ROUTE .STK-MED ONE Stop: 05/13/19 18:04 Midazolam HCl (Versed 1 Mg/Ml) Confirm Administered Dose 2 mg .ROUTE .STK-MED ONE Stop: 05/13/19 18:05 Morphine Sulfate (Morphine) 6 mg IVPUSH ONETIME ONE Stop: 05/13/19 13:28 Last Admin: 05/13/19 14:17 Dose: 6 mg Morphine Sulfate (Morphine) 0 mg IVPUSH Q1H PRN PRN Reason: Pain (severe 7-10) Ondansetron HCl (Zofran) 4 mg IVPUSH ONETIME ONE Stop: 05/13/19 13:28 Last Admin: 05/13/19 14:18 Dose: 4 mg Ondansetron HCl (Zofran) Confirm Administered Dose 4 mg .ROUTE .STK-MED ONE Stop: 05/13/19 18:04 Propofol (Diprivan 20 Ml) Confirm Administered Dose 200 mg .ROUTE .STK-MED ONE Stop: 05/13/19 18:04 - Exam Wound/Incisions: Dressing Dry and Intact Quality Assessment: No: Supplemental Oxygen, Central Line/PICC, Urine Catheter General: Alert, Oriented HEENT: Pupils Equal, Pupils Reactive. No: Scleral Icterus Neck: Supple, Trachea Midline Lungs: Clear to Auscultation, Normal Respiratory Effort Cardiovascular: Regular Rate, Regular Rhythm, No Murmurs. No: Tachycardia GI/Abdominal Exam: Normal Bowel Sounds, Soft, Non-Tender, No Distention. No: Guarding, Rigid, Rebound Extremities: Normal Inspection, Normal Range of Motion, Non-Tender, No Pedal Edema, Normal Capillary Refill Skin: Warm, Dry, Intact Psy/Mental Status: Alert, Normal Affect, Normal Mood Sepsis Event Note - Evaluation Sepsis Screening Result: No Definite Risk - Focused Exam Vital Signs: Vital Signs Temp Pulse Resp BP BP Pulse Ox 05/14/19 07:46 97.8 F 60 17 109/67 97 05/14/19 04:00 97.2 F 63 16 92/51 L 99 05/14/19 00:15 97.6 F 63 16 100/50 L 95 05/13/19 23:15 57 L 16 96/50 L 95 05/13/19 22:15 60 16 106/53 L 96 Date Exam was Performed: 05/14/19 Time Exam was Performed: 10:12 - Problem List & Annotations (1) Acute abdomen SNOMED Code(s): 8223549 Code(s): R10.0 - ACUTE ABDOMEN Status: Acute Current Visit: Yes (2) Acute appendicitis SNOMED Code(s): 20393504 Code(s): K35.80 - UNSPECIFIED ACUTE APPENDICITIS Status: Acute Current Visit: Yes Qualifiers: Acute appendicitis type: with localized peritonitis Appendicitis perforation presence: without perforation Appendicitis abscess presence: without abscess - Problem List Review Problem List Initiated/Reviewed/Updated: Yes - My Orders Last 24 Hours: Active Orders 24 hr Category Date Time Status Admission Status [Patient Status] [ADT] Routine ADT 05/13/19 16:25 Active Antiembolic Devices [RC] PER UNIT ROUTINE Care 05/13/19 16:24 Active Blood Glucose Check, Bedside [RC] PRN Care 05/13/19 17:34 Active Insert Urinary Catheter [OM.PC] Timed Care 05/13/19 16:24 Ordered Notify Provider Vital Signs [RC] ASDIRECTED Care 05/13/19 17:34 Active Oxygen Therapy [RC] ASDIRECTED Care 05/13/19 16:24 Active Oxygen Therapy [RC] PRN Care 05/13/19 17:34 Active Oxygen Therapy [RC] PRN Care 05/13/19 19:50 Active Pulse Oximetry [RC] ASDIRECTED Care 05/13/19 19:50 Active RT Aerosol Therapy [RC] ASDIRECTED Care 05/13/19 17:34 Active RT Aerosol Therapy [RC] ASDIRECTED Care 05/13/19 17:34 Active RT Aerosol Therapy [RC] ASDIRECTED Care 05/13/19 17:34 Active RT Incentive Spirometry [RC] Q1HWA Care 05/13/19 16:24 Active RT Incentive Spirometry [RC] Q1HWA Care 05/13/19 19:50 Active Ready for Discharge [RC] PER UNIT ROUTINE Care 05/14/19 10:11 Ordered Skin Preparation [RC] .PREOP Care 05/13/19 16:24 Active Up ad Alisa [RC] PER UNIT ROUTINE Care 05/13/19 19:50 Active Urinary Catheter Assessment [RC] ASDIRECTED Care 05/13/19 16:24 Active Urinary Catheter Assessment [RC] ASDIRECTED Care 05/13/19 16:24 Active Urinary Catheter Assessment [RC] ASDIRECTED Care 05/13/19 16:24 Active Vaccines to be Administered [RC] PER UNIT ROUTINE Care 05/13/19 11:31 Inactive Verify Patient Consent Obtain [RC] ASDIRECTED Care 05/13/19 17:34 Active Vital Signs [RC] PER UNIT ROUTINE Care 05/13/19 16:24 Active Vital Signs [RC] PER UNIT ROUTINE Care 05/13/19 19:50 Active Vital Signs [RC] Q4H Care 05/13/19 17:34 Active Advance Diet Instructions [DIET] Diet 05/13/19 Dinner Active Regular Diet [DIET] Diet 05/14/19 Breakfast Active CULTURE BLOOD [BC] Stat Lab 05/13/19 14:18 Received CULTURE BLOOD [BC] Stat Lab 05/13/19 14:38 Received Acetaminophen [Tylenol] Med 05/13/19 19:50 Active 325 mg PO Q4H PRN Acetaminophen/HYDROcodone [[place] 325-5 MG] Med 05/13/19 19:50 Active 1 tab PO Q6H PRN Albuterol [Proventil Neb Soln] Med 05/13/19 17:34 Active 2.5 mg NEB ONETIME PRN Atropine [Atropine 0.1 MG/ML] Med 05/13/19 17:34 Active 0.5 mg IVPUSH ASDIRECTED PRN Atropine [Atropine 0.1 MG/ML] Med 05/13/19 17:34 Active 1 mg IVPUSH ASDIRECTED PRN Dextrose 50% in Water Med 05/13/19 17:34 Active 50 ml IVPUSH ASDIRECTED PRN EPINEPHrine [EPINEPHrine 1:10,000] Med 05/13/19 17:34 Active 1 mg IVPUSH ASDIRECTED PRN Lactated Ringers [Ringers, Lactated] 1,000 ml Med 05/13/19 14:30 Active IV ASDIRECTED Lactated Ringers [Ringers, Lactated] 1,000 ml Med 05/13/19 16:30 Active IV ASDIRECTED Lactated Ringers [Ringers, Lactated] 1,000 ml Med 05/13/19 20:00 Active IV ASDIRECTED Morphine Med 05/13/19 20:03 Active 0 mg IVPUSH Q1H PRN Naloxone [Narcan] Med 05/13/19 17:34 Active 0.1 mg IVPUSH ASDIRECTED PRN Ondansetron [Zofran] Med 05/13/19 19:50 Active 4 mg IVPUSH Q6H PRN Sodium Chloride 0.9% [Saline Flush] Med 05/13/19 12:12 Active 10 ml FLUSH ASDIRECTED PRN Sodium Chloride 0.9% [Saline Flush] Med 05/13/19 12:12 Active 2.5 ml FLUSH ASDIRECTED PRN cefOXitin [Mefoxin in Dextrose,Iso-Osm 1 GM/50 ML] 1 gm Med 05/14/19 02:00 Active Premix Bag 1 bag IV Q8H fentaNYL [Sublimaze] Med 05/13/19 17:34 Active 50 - 100 mcg IVPUSH Q5M PRN Antiembolic Hose [OM.PC] Routine Oth 05/13/19 16:24 Ordered Blood Culture x2 Reflex Set [OM.PC] Stat Oth 05/13/19 14:07 Ordered Medication Administration Instruction [OM.PC] Routine Oth 05/13/19 17:34 Ordered Saline Lock Insert [OM.PC] Stat Oth 05/13/19 12:12 Ordered Resuscitation Status Routine Resus Stat 05/13/19 16:23 Ordered Medication Orders Acetaminophen (Tylenol) 325 mg PO Q4H PRN PRN Reason: Fever Greater Than 101 Hydrocodone Bitart/Acetaminophen ([place] 325-5 Mg) 1 tab PO Q6H PRN PRN Reason: Pain (moderate 4-6) Last Admin: 05/14/19 07:43 Dose: 1 tab Admin: 05/14/19 00:07 Dose: 1 tab Albuterol (Proventil Neb Soln) 2.5 mg NEB ONETIME PRN PRN Reason: Wheezing Atropine Sulfate (Atropine 0.1 Mg/Ml) 0.5 mg IVPUSH ASDIRECTED PRN PRN Reason: Hypo-perfusion Atropine Sulfate (Atropine 0.1 Mg/Ml) 1 mg IVPUSH ASDIRECTED PRN PRN Reason: Hypo-Perfusion Dextrose/Water (Dextrose 50% In Water) 50 ml IVPUSH ASDIRECTED PRN PRN Reason: Hypoglycemia Epinephrine HCl (Epinephrine 1:10,000) 1 mg IVPUSH ASDIRECTED PRN PRN Reason: ACLS Guidelines Fentanyl (Sublimaze) 50 - 100 mcg IVPUSH Q5M PRN PRN Reason: Pain Last Admin: 05/13/19 20:05 Dose: 50 mcg Admin: 05/13/19 19:59 Dose: 50 mcg Lactated Ringer's (Ringers, Lactated) 1,000 mls @ 150 mls/hr IV ASDIRECTED [facility] Last Admin: 05/13/19 14:36 Dose: 150 mls/hr Lactated Ringer's (Ringers, Lactated) 1,000 mls @ 125 mls/hr IV ASDIRECTED [facility] Last Admin: 05/14/19 08:36 Dose: 125 mls/hr Infusion: 05/14/19 08:02 Dose: 125 mls/hr Admin: 05/14/19 00:02 Dose: 125 mls/hr Lactated Ringer's (Ringers, Lactated) 1,000 mls @ 125 mls/hr IV ASDIRECTED [facility] Cefoxitin Sodium 1 gm/ Premix 50 mls @ 100 mls/hr IV Q8H [facility] Stop: 05/14/19 18:29 Last Admin: 05/14/19 09:11 Dose: 100 mls/hr Infusion: 05/14/19 01:47 Dose: 100 mls/hr Admin: 05/14/19 01:17 Dose: 100 mls/hr Morphine Sulfate (Morphine) 0 mg IVPUSH Q1H PRN PRN Reason: Pain (severe 7-10) Last Admin: 05/14/19 09:05 Dose: 2 mg Admin: 05/13/19 21:32 Dose: 2 mg Naloxone HCl (Narcan) 0.1 mg IVPUSH ASDIRECTED PRN PRN Reason: Respiratory Depression Ondansetron HCl (Zofran) 4 mg IVPUSH Q6H PRN PRN Reason: Nausea/Vomiting Sodium Chloride (Saline Flush) 10 ml FLUSH ASDIRECTED PRN PRN Reason: Keep Vein Open Sodium Chloride (Saline Flush) 2.5 ml FLUSH ASDIRECTED PRN PRN Reason: Keep Vein Open - Assessment Assessment (Free Text/Narrative):: Patient is feeling much better. He is stable for discharge. He has remained afebrile throughout his hospital stay. - Plan Plan (Free Text/Narrative):: Patient will be discharged today. He is scheduled to see me June 01. He was given a prescription for [place] 5/325 one every 6 hours as needed for pain. 10 tablets dispensed. He was also instructed that he could use Tylenol or ibuprofen during the day. He may shower and remove the dressings on May 16.
--- NOTE | 2019-05-14 12:07 | PCM48HPAN ---
Post Anesthesia Note - EVALUATION WITHIN 48HRS OF ANESTHETIC Vital Signs in Normal Range: Yes Patient Participated in Evaluation: Yes Respiratory Function Stable: Yes Airway Patent: Yes Cardiovascular Function Stable: Yes Hydration Status Stable: Yes Pain Control Satisfactory: Yes Nausea and Vomiting Control Satisfactory: Yes Mental Status Recovered: Yes Vital Signs: Last Vital Signs Temp 97.8 F 05/14/19 07:46 Pulse 60 05/14/19 07:46 Resp 17 05/14/19 07:46 BP 109/67 05/14/19 07:46 Pulse Ox 97 05/14/19 07:46
== END 2019-05-14 11:15 | disposition home or self-care (01) ==
LOC: MW.ED 11:12 → MW.SDS 16:33 → MW.MS 16:57 → MW.SDS 05-14 11:15
PROVIDERS: ATTEND Surgery
DX: K35.80 Unspecified acute appendicitis (principal); F17.210 Nicotine dependence, cigarettes, uncomplicated
CPT/HCPCS: 44970; 74177; 80053; 81001; 82150; 83690; 85025; 86850; 86900; 86901; 87040; A9270; J0690; J0694; J1885; J2001; J2250; J2270; J2405; J2704; J3010; J3490; J7120; Q9967